=== PATIENT | male | born 1945 | race Caucasian/White ===

== ENCOUNTER → 2019-01-10 08:26 | Outpatient (CLI) | payer MEDICARE, SELFPAY ==
--- NOTE | 2019-01-10 | DI.MRI.S_ITS ---
PROCEDURE: MR PELIS WO/W CON INDICATIONS: ELEVATED PSA TECHNIQUE: Coronal HASTE, axial T1 FSE with fat saturation, 3-plane nonbreath-hold T2 FSE. After the administration of contrast, dynamic axial, delayed axial and coronal VIBE or 2-D FLASH with fat saturation through the pelvis. Optional diffusion weighted imaging and ADC may be performed. COMPARISON: None. FINDINGS: Image quality: Diffusion weighted and dynamic contrast enhanced images are diagnostic. Prostate: Gland size is 6.0 x 4.8 x 5.2 cm cm; ellipsoid gland volume is 78 mL. There is enlargement of the prostate predominantly involving the peripheral zone. There is also heterogeneous enlargement of the transition zone. Lesion size(s): Lesion 1: 1.5 x 0.8 x 1.1 cm Lesion 2: 0.7 x 0.8 x 0.8 cm. Lesion location(s) (sector): Lesion 1: Right paracentral region of the anterior transition zone at the apex. Lesion 2: Right paracentral region of the anterior right peripheral zone at apex. Lesion description: Lesion 1: There is an oval T2 hypointense lesion with indistinct margins along the peripheral aspect of the transition zone. Lesion 2: There is a round T2 hypointense lesion with indistinct margins in the peripheral zone. T2 weighted imaging (T2WI) morphology score: Lesion 1: 4 Lesion 2: 4 Diffusion weighted imaging (DWI) morphology score: Lesion 1: 3 Lesion 2: 3 Dynamic contrast enhancement (DCE): Lesion 1: Present. Lesion 2: Present. 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 Distal ureters are non distended. Bowel and peritoneum: No pathologic free pelvic fluid. Inferior colon and small bowel loops are normal in caliber. There is colonic diverticulosis without acute diverticulitis. Nodes and vessels: No pelvic or inguinal adenopathy by size criteria. Iliac vessels are normal in caliber. Soft tissues: No inguinal hernias. Bones: Marrow demonstrates normal overall signal, without suspicious lesions to suggest metastases. IMPRESSION: 1. Demonstration of 2 focal lesions in the transition zone and peripheral zone of the prostate with imaging findings consistent with PI-RADS 4: High likelihood of clinically significant prostate cancer. Dictated by: Jovani Serrano M.D. on 01/10/2019 at 17:13 Approved by: Jovani Serrano M.D. on 01/10/2019 at 17:29
== END ==
PROVIDERS: PCP Student in an Organized Health Care Education/Training Program; Visit Provider Specialist
DX: R97.20 Elevated prostate specific antigen [PSA] (principal); N42.9 Disorder of prostate, unspecified
CPT/HCPCS: 72197; A9579

== ENCOUNTER → 2022-07-02 11:44 | Outpatient (CLI) | payer MEDICARE, SELFPAY | PROVIDERS: PCP Student in an Organized Health Care Education/Training Program; Referring Provider Specialist; Visit Provider Specialist | DX: M81.8 Other osteoporosis without current pathological fracture (principal); M19.90 Unspecified osteoarthritis, unspecified site; M85.89 Other specified disorders of bone density and structure, multiple sites | CPT/HCPCS: 77080 ==